=== PATIENT | male | born 1955 | race Caucasian/White ===

== ENCOUNTER 2017-05-13 22:10 | Emergency (ER) | payer OTHER ==
[~2017-05-13] VITALS: Ht 182.9 cm; Wt 73.0 kg
[~2017-05-13 22:10] MED LIST: AMBI10TA PO; ASPI81TA81 PO; CIPRHC10A LEFT EAR; MEDR4PAK PO; MULT1TAB84 PO; OMEP20TA PO; PRAV20TA PO
[2017-05-13 22:15] VITALS: BP 136/77; PULSE 97; RESP 16; TEMP 98.1; O2SAT 97
[2017-05-13] MEDS ORDERED: SODIUM CHLOR 0.9% 1000 ML INJ 1,000 ML IV ONE (22:21)
[2017-05-13 22:23] VITALS: BP_SYST 130; BP_SYST 138; BP_DIAS 72; BP_DIAS 73; RESP 16
--- NOTE | 2017-05-13 22:25 | PD ---
HPI Chief Complaint: Syncope/Near-Syncope Time Seen by Provider: 22:21 Travel History International Travel<30 days: No Contact w/Intl Traveler<30days: No History of Present Illness HPI 62-year-old male patient presents to the ER today, past medical history of high cholesterol, [place]. He states that he had eaten dinner and had felt fine but was in a crowded area when he started feeling warm, felt like he was going to blackout, and felt like his vision went out and he was very lightheaded. He does not think he lost consciousness. He denies any chest pains, trouble breathing, vomiting, black stools, diarrhea, or any other symptoms. He states that he had eaten dinner normally. He states that he had one previous episode of near-syncope on a flight to [facility]. He states that he has not had any other issues since. Modifying Factors: None Associated Signs & Symptoms: Near syncope Risk Factors: None PFSH Past Medical History High Cholesterol: Yes Diminished Hearing: No Insomnia: Yes Social History Alcohol Use: Yes (occ) Tobacco Use: No Substance Use: No Allergies-Medications (Allergen,Severity, Reaction): Coded Allergies: No Known Allergies (Verified , 10/05/16) Reported Meds & Prescriptions Reported Meds & Active Scripts Active Ambien (Zolpidem Tartrate) 10 Mg Tab 10 Mg PO HS PRN Medrol Dosepak (Methylprednisolone) 4 Mg Dspk 4 Mg PO DIRECTED Per Pharmacist direction Cipro Hc Otic Drops (Ciprofloxacin/Hydrocortisone) 0.2-1% Susp 3 Drop LEFT EAR BID Reported Aspir-81 (Aspirin) 81 Mg Tabdr 1 Tab PO DAILY Pravachol (Pravastatin) 20 Mg Tab 20 Mg PO DAILY Multivitamin Adults (Multiple Vitamins W/ Minerals) 1 Tab 1 Tab PO DAILY Omeprazole 20 Mg Tab 20 Mg PO BID Review of Systems Except as stated in HPI: all other systems reviewed are Neg Physical Exam Narrative GENERAL: Well-developed elderly white male patient currently mild distress. Awake and oriented 3. SKIN: Focused skin assessment warm/dry. HEAD: Atraumatic. Normocephalic. EYES: Pupils equal and round. No scleral icterus. No injection or drainage. ENT: No nasal bleeding or discharge. Mucous membranes pink and moist. NECK: Trachea midline. No JVD. CARDIOVASCULAR: Regular rate and rhythm. No murmur appreciated. Pulses are present and equal bilaterally. RESPIRATORY: No accessory muscle use. Clear to auscultation. Breath sounds equal bilaterally. GASTROINTESTINAL: Abdomen soft, non-tender, nondistended. Hepatic and splenic margins not palpable. MUSCULOSKELETAL: No obvious deformities. No clubbing. No cyanosis. No edema. NEUROLOGICAL: Awake and alert. No obvious cranial nerve deficits. Motor grossly within normal limits. Normal speech. PSYCHIATRIC: Appropriate mood and affect; insight and judgment normal. Data Data Last Documented VS Vital Signs Date Time Temp Pulse Resp B/P (MAP) Pulse Ox O2 Delivery O2 Flow Rate FiO2 05/13/17 22:23 85 16 130/73 (92) 110 16 138/72 (94) 05/13/17 22:15 98.1 97 Orders Orders Complete Blood Count With Diff (05/13/17 22:21) Comprehensive Metabolic Panel (05/13/17 22:21) Magnesium (Mg) (05/13/17 22:21) Ckmb (Isoenzyme) Profile (05/13/17 22:21) Troponin I (05/13/17 22:21) Act Partial Throm Time (Ptt) (05/13/17 22:21) Prothrombin Time / Inr (Pt) (05/13/17 22:21) Urinalysis - C+S If Indicated (05/13/17 22:21) Chest, Single Ap (05/13/17 22:21) Ecg Monitoring (05/13/17 22:21) Iv Access Insert/Monitor (05/13/17 22:21) Oximetry (05/13/17 22:21) Sodium Chloride 0.9% Flush (Ns Flush) (05/13/17 22:30) Sodium Chlor 0.9% 1000 Ml Inj (Ns 1000 M (05/13/17 22:21) Orthostatic Vital Signs (05/13/17 22:21) Sodium Chlorid 0.9% 500 Ml Inj (Ns 500 M (05/13/17 22:45) CKMB (05/13/17 22:25) CKMB% (05/13/17 22:25) Potassium Chloride (Kcl) (05/13/17 23:45) Labs Laboratory Tests Test 05/13/17 22:25 05/13/17 23:50 White Blood Count 7.0 TH/MM3 Red Blood Count 4.34 MIL/MM3 Hemoglobin 13.5 GM/DL Hematocrit 39.4 % Mean Corpuscular Volume 90.7 FL Mean Corpuscular Hemoglobin 31.1 PG Mean Corpuscular Hemoglobin Concent 34.3 % Red Cell Distribution Width 13.2 % Platelet Count 149 TH/MM3 Mean Platelet Volume 7.7 FL Neutrophils (%) (Auto) 49.2 % Lymphocytes (%) (Auto) 41.7 % Monocytes (%) (Auto) 5.1 % Eosinophils (%) (Auto) 2.6 % Basophils (%) (Auto) 1.4 % Neutrophils # (Auto) 3.5 TH/MM3 Lymphocytes # (Auto) 2.9 TH/MM3 Monocytes # (Auto) 0.4 TH/MM3 Eosinophils # (Auto) 0.2 TH/MM3 Basophils # (Auto) 0.1 TH/MM3 CBC Comment DIFF FINAL Differential Comment Prothrombin Time 10.7 SEC Prothromb Time International Ratio 1.0 RATIO Activated Partial Thromboplast Time 23.4 SEC Blood Urea Nitrogen 13 MG/DL Creatinine 1.02 MG/DL Random Glucose 101 MG/DL Total Protein 6.3 GM/DL Albumin 3.7 GM/DL Calcium Level 8.1 MG/DL Magnesium Level 1.9 MG/DL Alkaline Phosphatase 55 U/L Aspartate Amino Transf (AST/SGOT) 9 U/L Alanine Aminotransferase (ALT/SGPT) 29 U/L Total Bilirubin 0.5 MG/DL Sodium Level 146 MEQ/L Potassium Level 3.0 MEQ/L Chloride Level 107 MEQ/L Carbon Dioxide Level 28.9 MEQ/L Anion Gap 10 MEQ/L Estimat Glomerular Filtration Rate 74 ML/MIN Total Creatine Kinase 139 U/L Creatine Kinase MB 1.7 NG/ML Troponin I LESS THAN 0.02 NG/ML Urine Color YELLOW Urine Turbidity CLEAR Urine pH 6.5 Urine Specific Warren 1.011 Urine Protein NEG mg/dL Urine Glucose (UA) NEG mg/dL Urine Ketones NEG mg/dL Urine Occult Blood NEG Urine Nitrite NEG Urine Bilirubin NEG Urine Urobilinogen LESS THAN 2.0 MG/DL Urine Leukocyte Esterase NEG Urine WBC 2 /hpf Urine Hyaline Casts 7 /lpf Microscopic Urinalysis Comment CULT NOT INDICATED MDM Medical Decision Making Medical Screen Exam Complete: Yes Emergency Medical Condition: Yes Medical Record Reviewed: Yes Interpretation(s) EKG shows NSR, no ST elevation or depression, and no arrhythmias. No significant T-wave inversions. Laboratory Tests Test 05/13/17 22:25 05/13/17 23:50 Red Blood Count 4.34 MIL/MM3 (4.50-5.90) Platelet Count 149 TH/MM3 (150-450) Activated Partial Thromboplast Time 23.4 SEC (24.3-30.1) Total Protein 6.3 GM/DL (6.4-8.2) Calcium Level 8.1 MG/DL (8.5-10.1) Aspartate Amino Transf (AST/SGOT) 9 U/L (15-37) Sodium Level 146 MEQ/L (136-145) Potassium Level 3.0 MEQ/L (3.5-5.1) Estimat Glomerular Filtration Rate 74 ML/MIN (>89) Troponin I LESS THAN 0.02 NG/ML Last 24 hours Impressions Chest X-Ray 05/13/172220 Signed Impressions: Service Date/Time: Saturday, May 13, 2017 22:35 - CONCLUSION: No acute cardiopulmonary disease. Elijah Aparicio MD Differential Diagnosis Near syncope: dehydration versus metabolic issues versus heat related syncope versus dysrhythmias Narrative Course Lab work shows hypokalemia. Potassium was given in the ER. Lab work was otherwise unremarkable for other significant metabolic issues. I suspect that this near-syncope may have been secondary to some underlying dehydration as well. Patient is feeling much better in the ER and had no further symptoms. At this point, my plan would be to release the patient with potassium replacement and follow-up to primary care physician. He should drink plenty of fluids, stay out of the heat. Return for any worsening in symptoms as needed. The plan has been discussed with him and he states understanding. Diagnosis Primary Impression: Near syncope Additional Impression: Hypokalemia Med/Other Pt SpecificInfo: Prescription(s) given Scripts Potassium Chloride ER (K-Tab) 20 Meq Tab 20 MEQ PO BID for Electrolyte Replacement, #10 TAB 0 Refills Prov: Corinne Gan MD 05/14/17 Disposition: 01 DISCHARGE HOME Condition: Stable Corinne Gan MD May 13, 2017 22:25
[2017-05-13] MEDS ORDERED: SODIUM CHLORIDE 0.9% FLUSH 10 ML FLUSH IVF PRN (22:30)
[2017-05-13 22:41] LABS: AUTOMATED NEUTROPHIL # 3.5 TH/MM3 (1.8-7.7); BASOPHIL # 0.1 TH/MM3 (0-0.2); BASOPHIL % 1.4 % (0.0-2.0); EOSINOPHIL # 0.2 TH/MM3 (0-0.4); EOSINOPHIL % 2.6 % (0.0-4.0); HEMATOCRIT 39.4 % (39.0-51.0); HEMO FLAGS DIFF FINAL; LYMPH % 41.7 % (9.0-44.0); LYMPHOCYTE # 2.9 TH/MM3 (1.0-4.8); MEAN CELL VOLUME 90.7 FL (80.0-100.0); MEAN CORPUSCULAR HEMOGLOBIN 31.1 PG (27.0-34.0); MEAN CORPUSCULAR HGB CONC 34.3 % (32.0-36.0); MONO % 5.1 % (0.0-8.0); NEUT % 49.2 % (16.0-70.0); PLATELET COUNT 149 TH/MM3 (150-450); RED BLOOD COUNT 4.34 MIL/MM3 (4.50-5.90); RED CELL DISTRIBUTION WIDTH 13.2 % (11.6-17.2)
[2017-05-13] MEDS ORDERED: SODIUM CHLORID 0.9% 500 ML INJ 500 ML IV ONE (22:45)
[2017-05-13 22:53] LABS: APTT (PATIENT) 23.4 SEC (24.3-30.1); PROTHROMBIN TIME - PATIENT 10.7 SEC (9.8-11.6)
[2017-05-13 22:55] LABS: ALT (GPT) 29 U/L (12-78); ANION GAP 10 MEQ/L (5-15); AST (GOT) 9 U/L (15-37); BICARBONATE 28.9 MEQ/L (21.0-32.0); BLOOD UREA NITROGEN 13 MG/DL (7-18); CHLORIDE 107 MEQ/L (98-107); GLOMERULAR FILTRATION RATE 74 ML/MIN (>89); MAGNESIUM 1.9 MG/DL (1.5-2.5); SODIUM (NA) 146 MEQ/L (136-145)
--- NOTE | 2017-05-13 22:56 | RADRPT ---
EXAM DATE/TIME: 05/13/2017 22:35 [facility] COMPARISON: No previous studies available for comparison. INDICATIONS : Patient feeling lightheaded. No chest complaint. MEDICAL HISTORY : None. SURGICAL HISTORY : None. ENCOUNTER: Initial ACUITY: 1 day PAIN SCORE: 0/10 LOCATION: Bilateral chest FINDINGS: The Heart and mediastinal structures are normal. The pulmonary vascular pattern is normal. The lung s are clear. CONCLUSION: No acute cardiopulmonary disease. Elijah Aparicio MD on May 13, 2017 at 22:51 Board Certified Radiologist. This report was verified electronically.
[2017-05-13 22:59] LABS: ALKALINE PHOSPHATASE 55 U/L (45-117); CREATINE KINASE 139 U/L (39-308); TOTAL BILIRUBIN ADULT 0.5 MG/DL (0.2-1.0)
[2017-05-13 23:11] LABS: CKMB 1.7 NG/ML (0.5-3.6)
[2017-05-13] MEDS ORDERED: POTASSIUM CHLORIDE 10 MEQ CONTROLLED RELEASE TAB PO ONE (23:45)
[2017-05-14 00:25] LABS: BLOOD, URINE NEG (NEG); COMMENT (UR) CULT NOT INDICATED; CULTURE IF INDICATED CULT NOT INDICATED; GLUCOSE,URINE NEG (NEG); HYALINE CAST, URINE 7 /lpf (RARE); KETONE, URINE NEG (NEG); NITRITE,URINE NEG (NEG); PH, URINE 6.5 (5.0-8.5); URINE COLOR YELLOW (YELLW/STRAW)
[2017-05-14] MEDS ORDERED: POTA1TAB4 PO (00:36)
--- NOTE | 2017-05-14 11:57 | EKG ---
Date Performed: 05/13/2017 Time Performed: 22:17:54 PTAGE: 62 years EKG: Sinus rhythm NONSPECIFIC T-WAVE ABNORMALITY BORDERLINE ECG PREVIOUS TRACING : 03/10/2003 16.53 Compared to prior tracing no significant change DOCTOR: Herbert Bishop Interpretating Date/Time 05/14/2017 11:55:13
== END 2017-05-14 01:08 | disposition home or self-care (01) ==
LOC: NEPC 22:10
DX: R55 Syncope and collapse (principal); E87.6 Hypokalemia
CPT/HCPCS: 71010; 80053; 81001; 82550; 82552; 83735; 84484; 85025; 85610; 85730; 93005; 96360; 99285; J7040

== ENCOUNTER 2017-05-28 16:07 | Emergency (ER) | payer OTHER ==
[~2017-05-28] VITALS: Ht 177.8 cm; Wt 82.5 kg
[~2017-05-28 16:07] MED LIST changes: +POTA1TAB4 PO
[2017-05-28 16:13] VITALS: BP 173/97; PULSE 93; RESP 16; TEMP 98.4; O2SAT 97
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
[2017-05-28] MEDS ORDERED: SODIUM CHLORIDE 0.9% FLUSH 10 ML FLUSH IV FLUSH PRN (16:45)
[2017-05-28 16:46] VITALS: BP 152/93; PULSE 92; RESP 18; O2SAT 99
[2017-05-28 17:09] LABS: AUTOMATED NEUTROPHIL # 2.9 TH/MM3 (1.8-7.7); BASOPHIL % 0.7 % (0.0-2.0); EOSINOPHIL # 0.1 TH/MM3 (0-0.4); EOSINOPHIL % 1.7 % (0.0-4.0); HEMATOCRIT 41.5 % (39.0-51.0); HEMO FLAGS DIFF FINAL; LYMPH % 34.4 % (9.0-44.0); LYMPHOCYTE # 1.7 TH/MM3 (1.0-4.8); MEAN CELL VOLUME 90.1 FL (80.0-100.0); MEAN CORPUSCULAR HEMOGLOBIN 31.1 PG (27.0-34.0); MEAN CORPUSCULAR HGB CONC 34.5 % (32.0-36.0); MONO % 6.5 % (0.0-8.0); NEUT % 56.7 % (16.0-70.0); PLATELET COUNT 156 TH/MM3 (150-450); RED BLOOD COUNT 4.61 MIL/MM3 (4.50-5.90); RED CELL DISTRIBUTION WIDTH 12.2 % (11.6-17.2)
[2017-05-28 17:20] LABS: CHLORIDE 105 MEQ/L (98-107); POTASSIUM 3.7 MEQ/L (3.5-5.1); SODIUM (NA) 139 MEQ/L (136-145)
[2017-05-28 17:24] LABS: ANION GAP 7 MEQ/L (5-15); BICARBONATE 27.1 MEQ/L (21.0-32.0); BLOOD UREA NITROGEN 14 MG/DL (7-18)
[2017-05-28 17:25] LABS: APTT (PATIENT) 27.1 SEC (24.3-30.1); INTERNATIONAL NORMALIZED RATIO 0.9 RATIO; PROTHROMBIN TIME - PATIENT 10.4 SEC (9.8-11.6)
[2017-05-28 17:27] LABS: ALT (GPT) 32 U/L (12-78); AST (GOT) 12 U/L (15-37); GLOMERULAR FILTRATION RATE 86 ML/MIN (>89)
[2017-05-28 17:28] VITALS: BP 157/93; PULSE 77; RESP 18; O2SAT 95
[2017-05-28 17:28] LABS: TOTAL BILIRUBIN ADULT 0.4 MG/DL (0.2-1.0)
[2017-05-28 17:30] LABS: ALKALINE PHOSPHATASE 59 U/L (45-117); CREATINE KINASE 289 U/L (39-308)
[2017-05-28 17:42] LABS: CKMB 1.8 NG/ML (0.5-3.6)
--- NOTE | 2017-05-29 11:29 | EKG ---
Date Performed: 05/28/2017 Time Performed: 16:44:36 PTAGE: 62 years EKG: Sinus rhythm NORMAL ECG Compared to prior tracing no significant change PREVIOUS TRACING : 05/13/2017 22.17 DOCTOR: Carol Ibarra Interpretating Date/Time 05/29/2017 11:27:55
== END 2017-05-28 18:26 | disposition home or self-care (01) ==
LOC: PHED 16:07
DX: R42 Dizziness and giddiness (principal); R03.0 Elevated blood-pressure reading, without diagnosis of hypertension
CPT/HCPCS: 80053; 82550; 82552; 83690; 83735; 84484; 85025; 85610; 85730; 93005

== ENCOUNTER → 2017-05-31 | Outpatient (CLI) | payer OTHER ==
--- NOTE | 2017-06-02 08:04 | HM ---
Date Performed: 05/31/2017 Time Performed: 10:24:00 HOOKUP DATE: 05/31/17 10:24:00 AM Wed ANALYSIS START TIME: 05/31/2017 10:29:00 AM ANALYSIS END TIME: 06/01/2017 10:33:00 AM PATIENT AGE: 62 PATIENT HEIGHT PATIENT WEIGHT DRUG LIST PATIENT DIAGNOSIS: near syncope TEST NARRATIVE: The patient's average heart rate was 80 BPM. Heart rates greater than 120 B PM were noted 5% of the time. No episodes of bradycardia were noted. No pauses exceeding 2.0 sec onds were noted. 124 ventricular ectopics, which represented < 1% of the total beat count, were n oted. The highest ventricular ectopic frequency occurred from 01:00 PM to 02:00 PM Wed. During this time 37 VE(s) occurred. Ventricular ectopics were observed as 124 isolated beat(s) only. No couple ts or runs were noted. 2 supraventricular ectopics, which represented < 1% of the total beat coun t, were noted. The highest supraventricular ectopic frequency occurred from 05:00 AM to 06:00 AM Beatriz . During this time 1 SVE(s) occurred. No episodes of ST depression (defined as -1.0 mm or more) were noted in channel 1. No episodes of ST depression (defined as -1.0 mm or more) were noted in zhou nnel 2. No episodes of ST depression (defined as -1.0 mm or more) were noted in channel 3. TEST INTERPRETATION: There is no evidence of heart block or prolonged pauses or other arrhythmia s. Patient appeared to have sinus tachycardia while exercising. Patient is aware of premature beats a nd felt PVCs on one diary dictation. Overall, this is a fairly benign holter monitor with no evidence for cause of near syncope. Yuridia d by : Mitesh Kim
== END ==
LOC: HCAV 09:52
PROVIDERS: ATTEND Family Medicine
DX: R55 Syncope and collapse (principal)
CPT/HCPCS: 93225; 93226